=== PATIENT | female | born 1960 | race Caucasian/White ===

== ENCOUNTER 2019-05-28 13:17 | Day surgery (SDC) | payer OTHER ==
[2019-05-28] MEDS ORDERED: PROPOFOL 40 ML (15:58)
[2019-05-28] MEDS ORDERED: LIDOCAINE 2% (SDV) 5 ML INJ (15:59)
[2019-05-28] MEDS ORDERED: hydrALAzine 20 MG INJ IV (17:00)
[2019-05-28] MEDS ORDERED: LABETALOL HCL 20MG INJ IV (17:00)
[2019-05-28] MEDS ORDERED: ONDANSETRON 4 MG INJ IV (17:00)
[2019-05-28] MEDS ORDERED: EPHEDrine 25 MG/5 ML SYG IV (17:00)
[2019-05-28] MEDS ORDERED: FENTAnyl 50 MCG/ML VIAL IV (17:00)
== END 2019-05-28 17:13 | disposition home or self-care (01) ==
LOC: GIL 13:17
DX: Z12.11 Encounter for screening for malignant neoplasm of colon (principal); K64.8 Other hemorrhoids
CPT/HCPCS: 45385; 88305